=== PATIENT | male | born 1960 | race Caucasian/White ===

== ENCOUNTER → 2020-09-15 09:51 | Outpatient (BNVA) | payer BC, SELFPAY | PROVIDERS: PCP Internal Medicine; Referring Provider Internal Medicine; Visit Provider Nurse Practitioner Gerontology | DX: E11.9 Type 2 diabetes mellitus without complications (principal) ==

== ENCOUNTER 2020-12-23 09:19 | Outpatient (REF) | payer BC, SELFPAY ==
[2020-12-23 11:48] LABS: Estimated Average Glucose 171 mg/dL; Hemoglobin A1c % 7.6 %
[2020-12-23 11:52] LABS: Alanine Aminotransferase 29 U/L (0-40); Albumin Level 4.5 g/dL (3.5-5.0); Alkaline Phosphatase 59 U/L (39-117); Anion Gap 20 (12-20); Aspartate Amino Transferase 26 U/L (5-37); Bilirubin Total 2.1 mg/dL (0.0-1.0); Blood Urea Nitrogen 14 mg/dL (9-16); Calcium 9.6 mg/dL (8.4-10.2); Carbon Dioxide 22 mmol/L (22-29); Chloride 105 mmol/L (96-108); Cholesterol 142 mg/dL; Estimated Glomerular Filt Rate > 60; Glucose Fasting 125 mg/dL (60-99); HDL Cholesterol 52 mg/dL; LDL Cholesterol Calculated 66 mg/dl; Sodium 143 mmol/L (135-145); Total Protein 7.1 g/dL (6.5-8.0); Triglycerides 122 mg/dL
[2020-12-23 12:30] LABS: Creatinine Urine 76.39 mg/dL
[2020-12-24 04:57] LABS: LDL Cholesterol Direct 67 mg/dL (<100)
== END 2020-12-23 09:20 | disposition home or self-care (01) ==
LOC: HO.HMGCLDS 09:19
PROVIDERS: PCP Internal Medicine; Visit Provider Nurse Practitioner Gerontology
DX: E11.9 Type 2 diabetes mellitus without complications (principal)
CPT/HCPCS: 36415; 80053; 80061; 82043; 83036; 83721

== ENCOUNTER → 2021-01-04 08:19 | Outpatient (BNVA) | payer BC, SELFPAY | PROVIDERS: PCP Internal Medicine; Visit Provider Nurse Practitioner Gerontology | DX: E11.9 Type 2 diabetes mellitus without complications (principal); I10 Essential (primary) hypertension; E78.5 Hyperlipidemia, unspecified | CPT/HCPCS: 82947 ==

== ENCOUNTER → 2021-04-18 09:56 | Outpatient (BNVA) | payer BC, SELFPAY | PROVIDERS: PCP Internal Medicine; Visit Provider Nurse Practitioner Gerontology | DX: E11.65 Type 2 diabetes mellitus with hyperglycemia (principal); E11.21 Type 2 diabetes mellitus with diabetic nephropathy; I10 Essential (primary) hypertension; E78.5 Hyperlipidemia, unspecified; E66.01 Morbid (severe) obesity due to excess calories; I73.9 Peripheral vascular disease, unspecified; F17.290 Nicotine dependence, other tobacco product, uncomplicated; Z68.24 Body mass index [BMI] 24.0-24.9, adult; Z88.2 Allergy status to sulfonamides; Z79.4 Long term (current) use of insulin; Z79.899 Other long term (current) drug therapy | CPT/HCPCS: 82947 ==

== ENCOUNTER → 2021-08-24 11:34 | Outpatient (BNVA) | payer BC, SELFPAY | PROVIDERS: PCP Internal Medicine; Visit Provider Registered Nurse Diabetes Educator ==

== ENCOUNTER → 2021-10-25 10:50 | Outpatient (BNVA) | payer BC, SELFPAY | PROVIDERS: PCP Internal Medicine; Visit Provider Nurse Practitioner Gerontology | DX: E11.65 Type 2 diabetes mellitus with hyperglycemia (principal); E78.5 Hyperlipidemia, unspecified; I10 Essential (primary) hypertension | CPT/HCPCS: 82947; 83036 ==

== ENCOUNTER → 2021-11-28 07:58 | Outpatient (BNVA) | payer BC, SELFPAY | PROVIDERS: PCP Internal Medicine; Visit Provider Registered Nurse Diabetes Educator | DX: Z13.89 Encounter for screening for other disorder (principal) ==

== ENCOUNTER → 2022-08-22 07:53 | Outpatient (BNVA) | payer BC, SELFPAY | PROVIDERS: PCP Internal Medicine; Visit Provider Registered Nurse Diabetes Educator | DX: Z13.89 Encounter for screening for other disorder (principal) ==

== ENCOUNTER 2023-04-11 09:32 | Outpatient (AMB) | payer BC, SELFPAY ==
--- NOTE | 2023-04-11 09:36 | MHC.PC.OV ---
Vital Signs 04/11/23 09:37 Height 5 ft 11 in Weight 182 lb 2 oz BMI 25.4 BP 130/70 Blood Pressure Location Lt brachial Position Sitting Pulse 90 Pulse Source Pulse Oximeter Pulse Oximetry (%) 97 Oxygen Delivery Method Room Air Intake Visit Reasons: 4mth f/u Intake Note: Patient is here to follow up on DM, HTN, Hyperlipidemia. Certification Officer Required: No Leacher: Not Required per policy Accompanied by: Self / Same As Patient Allergies Sulfa (Sulfonamide Antibiotics) [SULFA (SULFONAMIDE ANTIBIOTICS)] Allergy (Unknown, Verified 04/11/23 09:36) UNKNOWN Medication List - Last Reconciled 04/11/23 by Sushil Quach MD acarbose 25 mg PO TID atorvastatin 80 mg PO BEDTIME blood sugar diagnostic (BehanceTouch Verio test strips) As directed 3x/day blood-glucose meter (OneTouch Verio Meter) As directed three times a day dulaglutide (Trulicity) 0.75 mg (0.5 mL) subcut QWEEK empagliflozin (Jardiance) 25 mg PO QAM ezetimibe 10 mg PO DAILY metformin 1,000 mg PO BID omeprazole 20 mg PO DAILY pioglitazone 30 mg PO DAILY tadalafil 5 mg PO DAILY Tobacco use date assessed: 04/11/23 Fall risk assessment: No Falls in past year Last assessed Fall Risk: 04/11/23 Dental Screening Dental Screen Date: 04/11/23 Did you have a dental visit in the last 12 months?: No Did you have a dental problem in the last 6 months where you did not have access to dental care?: No Was dental information given to patient?: No (dentures) HPI 4mth f/u HPI Details DM HTN and hyperlipidemia; due for labs PFSH Medical History (Updated 04/11/23 @ 10:18 by Sushil Quach MD) Barretts esophagus Diabetes mellitus type 2, controlled, without complications DM2 (diabetes mellitus, type 2) Erectile dysfunction Essential hypertension Gastric ulcer Hiatal hernia Hyperlipidemia LDL goal <100 Morbid obesity due to excess calories PAD (peripheral artery disease) Poorly controlled diabetes mellitus Surgical History History of cholecystectomy History of surgery History of tonsillectomy History of vasectomy Hx of colonoscopy Hx of endoscopy Hx of hemorrhoidectomy Hx of rhinoplasty Hx of rotator cuff surgery Family History Father Diabetes Mother Diabetes Cancer Brother Diabetes Sister Diabetes Social History Household Members: Family Housing: House Alcohol intake: current Alcohol intake frequency: a few times a week Patient Tobacco Use Status: Current someday Tobacco user Tobacco use type: Cigar Years Smoked: 3 cigars a week e-Cigarette/Vaping Use: Never Used Second Hand Smoke Exposure: No service: No Current occupational status: retired Cognitive needs: No Hearing needs: No Vision needs: Yes (glasses) Questionnaire PHQ-9 Over the last 2 weeks, how often have you been bothered by any of the following problems? Depression Screening Interpretation: Negative Source: Developed by Drs. Oscar Montes De Oca, Shantell Brown, Aidan Art and colleagues, with an educational eldon from [employer]. Thrive Questionnaire Date Thrive assessed: 10/23/22 Currently or been in a relationship where the following occur: no concerns reported HEATH-7 AMB Questionnaire HEATH-7 Date HEATH - 7 assessed: 10/23/22 Source: Developed by Drs. Oscar Montes De Oca, Shantell Brown, Aidan Art and colleagues, with an educational eldon from [employer]. Review of Systems Const Denies chills, Denies headache(s) and Denies weight loss ENT Denies headache(s) Card Denies chest pain, Denies syncope, Denies irregular heart rhythm and Denies dyspnea Resp Denies chest congestion, Denies cough and Denies dyspnea GI Denies abdominal pain, Denies change in stool character, Denies nausea and Denies vomiting Musc Denies deformity and Denies joint swelling Neuro Denies syncope and Denies headache(s) Physical exam (Primary Care) Vital Signs: Last Vital Signs Pulse 90 04/11/23 09:37 BP 130/70 04/11/23 09:37 Pulse Ox 97 04/11/23 09:37 Oxygen Delivery Method Room Air 04/11/23 09:37 BMI result Body Mass Index 25.4 Tobacco/Smoking Status: Tobacco use Status Tobacco use date assessed 04/11/23 04/11/23 09:47 Patient Tobacco Use Status Current someday Tobacco 04/11/23 09:47 Tobacco use type Cigar 04/11/23 09:47 e-Cigarette/Vaping Use Never Used 04/11/23 09:47 Depression Screening Interpretation: Negative Thrive Assessment: Date of Thrive Assessment Date Thrive assessed 10/23/22 04/11/23 09:47 Currently or been in a relationship where the following occur: no concerns reported Advance Care Planning discussion: On file, no changes Forms completed: Health Care Proxy Const General: cooperative, healthy appearing and no acute distress Orientation/consciousness: oriented to person, oriented to place and oriented to time HENMT Head: Yes normal to inspection, Yes normocephalic and Yes atraumatic Mouth: Normal oral and palatal mucosa present and tongue normal Throat: Yes posterior oropharynx normal and Yes uvula midline Eyes General: appearance normal, both eyes and all related structures Neck Neck: Yes normal visual inspection, Yes full ROM and Yes no lymphadenopathy Thyroid: Thyroid normal Carotids: normal carotid upstroke Chest Chest palpation & inspection: normal inspection of the chest Resp Effort & Inspection: normal respiratory effort and able to speak in complete sentences Auscultation: clear to auscultation bilaterally Cardio Jugular venous distension: no JVD Palpation: normal PMI Rate: regular rate Rhythm: regular rhythm Heart sounds: S1 normal heart sound present and S2 normal heart sound present GI Inspection: Yes normal to inspection Palpation (GI): Soft to palpation and No hepatosplenomegaly present Auscultation: normal bowel sounds General: Yes no CVA tenderness Back/Spine/Pelvis Back: no CVA tenderness Skin General skin exam: no rashes or lesions noted Neuro General: oriented to person, oriented to place and oriented to time Extrem General: Yes normal to inspection and Yes full ROM Results AMB Hemoglobin A1c AMB Hemoglobin A1c 8.1 % Last Edit by ABIOLA [place] on 04/11/23 09:54 Results Reviewed Results Reviewed: Laboratory Last Values Hgb A1c (Clinic) 8.1 % (4.0-6.0) H 04/11/23 09:35 Assessment and Plan Assessment & Plan (1) Hyperlipidemia LDL goal <100: Code(s): E78.5 - Hyperlipidemia, unspecified Plan: stable; same rx (2) Essential hypertension: Code(s): I10 - Essential (primary) hypertension Plan: stable; same rx (3) Type 2 diabetes mellitus with hyperlipidemia: Code(s): E11.69 - Type 2 diabetes mellitus with other specified complication; E78.5 - Hyperlipidemia, unspecified Plan: per endo Orders: Orders AMB Hemoglobin A1c Today E11.9 - Type 2 diabetes mellitus without complications Comprehensive [place]. Panel Fast Today N28.9 - Disorder of kidney and ureter, unspecified Hemoglobin A1c Today R73.9 - Hyperglycemia, unspecified Lipid Panel Today E78.5 - Hyperlipidemia, unspecified Microalbumin, Random (w Creat) Today E11.69 - Type 2 diabetes mellitus with other specified complication, E66.01 - Morbid (severe) obesity due to excess calories Complete Blood Count Auto Diff Today D64.9 - Anemia, unspecified Coding Level of Care Code Est Pt Level 4 (94961) Diagnoses Hyperlipidemia LDL goal <100 E78.5 Essential hypertension I10 Type 2 diabetes mellitus with hyperlipidemia E11.69; E78.5 Additional Codes Vital Signs *Quality* - Advance Care Planning discussion: On file, no changes ([id number])
[2023-04-11 09:37] VITALS: BP 130/70; PULSE 90; O2SAT 97; BMI 25.4
== END 2023-04-11 09:59 | disposition home or self-care (01) ==
PROVIDERS: PCP Internal Medicine; Visit Provider Internal Medicine
DX: E78.5 Hyperlipidemia, unspecified (principal); I10 Essential (primary) hypertension; E11.69 Type 2 diabetes mellitus with other specified complication; E11.9 Type 2 diabetes mellitus without complications; Z00.00 Encounter for general adult medical examination without abnormal findings
CPT/HCPCS: 1123F; 83036; 99214

== ENCOUNTER 2023-04-18 08:52 | Outpatient (AMB) | payer BC, SELFPAY ==
--- NOTE | 2023-04-18 09:38 | MHC.AMDMED ---
Intake Intake Visit Reasons: dm/CONFIRM Core Loader Required: No Accompanied by: Self / Same As Patient Allergies Sulfa (Sulfonamide Antibiotics) [SULFA (SULFONAMIDE ANTIBIOTICS)] Allergy (Unknown, Verified 04/11/23 09:36) UNKNOWN HPI Comprehensive Diabetes Asmnt Most Recent Diabetes Results: No Data to Display [facility] Medical History (Updated 04/11/23 @ 10:18 by Sushil Quach MD) Barretts esophagus Diabetes mellitus type 2, controlled, without complications DM2 (diabetes mellitus, type 2) Erectile dysfunction Essential hypertension Gastric ulcer Hiatal hernia Hyperlipidemia LDL goal <100 Morbid obesity due to excess calories PAD (peripheral artery disease) Poorly controlled diabetes mellitus Surgical History History of cholecystectomy History of surgery History of tonsillectomy History of vasectomy Hx of colonoscopy Hx of endoscopy Hx of hemorrhoidectomy Hx of rhinoplasty Hx of rotator cuff surgery Family History Father Diabetes Mother Diabetes Cancer Brother Diabetes Sister Diabetes Social History Household Members: Family Housing: House Alcohol intake: current Alcohol intake frequency: a few times a week Patient Tobacco Use Status: Current someday Tobacco user Tobacco use type: Cigar Years Smoked: 3 cigars a week e-Cigarette/Vaping Use: Never Used Second Hand Smoke Exposure: No service: No Current occupational status: retired Cognitive needs: No Hearing needs: No Vision needs: Yes (glasses) Assessment & Plan Assessment & Plan (1) Type 2 diabetes mellitus with hyperlipidemia: Code(s): E11.69 - Type 2 diabetes mellitus with other specified complication; E78.5 - Hyperlipidemia, unspecified Plan: Learning objectives: The patient was provided with verbal and written education on the following topics as outlined below. The patient met all learning objectives and was able to verbalize understanding and provide teach back of education topics discussed . The patient was provided with the opportunity to ask questions and all questions were answered. Patient Assessment Assess patient education level/literacy/barriers Patient questions/concerns, patient's PCP is managing diabetes medications at this time. Was seen on 04/11/2023 A1c was drawn. Still above target. Patient reports his PCP did not discuss diabetes medications at last visit. What is Diabetes? Pathophysiology How the body produces and uses insulin Identify type of DM Risk factors Signs of Diabetes Brief overview of Diabetes Management Monitoring blood sugar Following a meal plan Regular exercise Maintaining a healthy weight Taking medication as needed Members of the care team (PCP, RN, MA, RD, CDE, varnish remover) Blood glucose monitoring When/how often to test Target blood sugar ranges Patient does not test glucose levels Last A1c 8.1% on 04/11/23 Over the past 12 months patient's A1c has consistently improved, however still above target range Introduction to Nutrition Importance of healthy diet in managing DM Diet is personalized to individual preference Review patient?s regular diet/food preferences Who prepares meals/does food shopping/ Dining out?/ Barriers? How diet effects glucose Eating 3 balanced meals a day with small, healthy snacks between meals Review food groups Carbohydrates: What is a carbohydrate/Which food/food groups are considered carbohydrates Effect of carbohydrates on blood glucose Portion sizes Reading food labels Basic carb counting (if applicable per nursing assessment) Plate method Meal planning Recommendations: Follow plate method, consistent carbs and read nutritional labels. Smart Goal: Patient will move high carb snacks, prior to work. Educational Materials: The patient was provided with the following written educational materials: Planning Healthy Meals Handout Patient Response to instructions: Comprehension of Instructions: Fair Readiness to make changes: Contemplation How confident they feel about making changes: Poor Patient Instructions: Include regular daily activity. ADA recommends 30 minutes of exercise 5 days a week. Weight loss talk to PCP or Fiberglass Tube Molder before starting new plan. Test blood sugar as directed; Fasting and 2hpp largest meal. Watch trends in results. Utilize results and to assess how food, physical activity and medications affect blood sugar results. Bring glucometer or CGM to next visit. Be knowledgeable about diabetes medication, its action, side effects, efficacy, toxicity, prescribed dosage, appropriate timing and frequency of administration, effect of missed and delayed doses and instructions for storage, travel and safety. Follow-up with Diabetes Education nurse in 3 months Coding Level of Care Code Est Pt Level 1 (44276) Diagnoses Type 2 diabetes mellitus with hyperlipidemia E11.69; E78.5
== END 2023-04-18 09:42 | disposition home or self-care (01) ==
PROVIDERS: PCP Internal Medicine; Referring Provider Internal Medicine; Visit Provider Registered Nurse Diabetes Educator
DX: E11.69 Type 2 diabetes mellitus with other specified complication (principal); E78.5 Hyperlipidemia, unspecified

== ENCOUNTER → 2023-04-18 08:52 | Outpatient (BNVA) | payer BC, SELFPAY | PROVIDERS: Visit Provider Registered Nurse Diabetes Educator | DX: E11.69 Type 2 diabetes mellitus with other specified complication (principal); E78.5 Hyperlipidemia, unspecified | CPT/HCPCS: 99211 ==

== ENCOUNTER 2023-08-06 09:23 | Outpatient (AMB) | payer BC, SELFPAY ==
[2023-08-06 09:25] VITALS: BP 124/64; PULSE 89; BMI 26.2
--- NOTE | 2023-08-06 09:25 | A.OFFVIS_ITS ---
Intake Vital Signs 08/06/23 09:25 Height 5 ft 11 in Weight 187 lb 13.341 oz BMI 26.2 BP 124/64 Blood Pressure Location Lt brachial Position Sitting Pulse 89 Pulse Source Pulse Oximeter Intake Visit Reasons: DM-CONFIRMED Intake Note: Patient present today to follow up on Type 2 Diabetes Mellitus. Last Diabetic Eye exam: 07/2022 Last Podiatry Visit: 06/2023 Random Glucose: 230 mg/dl HgA1C: 8.2% Venetian Blind Washer Required: No Accompanied by: Self / Same As Patient Allergies Sulfa (Sulfonamide Antibiotics) [SULFA (SULFONAMIDE ANTIBIOTICS)] Allergy (Unknown, Verified 08/06/23 09:31) UNKNOWN HPI HPI Comments History of Present Illness Details Patient is a 62 yo male with DM type 2 diagnosed around 2008 who presents for continued management of diabetes. Patient was last seen on 10/25/2021 by Katiuska Cisneros NP. Past medical history: HLD, HTN Micro and macrovascular complications: - PVD. Diabetes medications: Jardiance 25mg, metformin 1000 BiD, Trulicity 0.75mg, previously on Actos 30mg ,precose 25 mg BID repaglinide caused side effects. Intolerant of higher doses of Trulicity. Unfortunately did not bring glucometer or logbook -very infrequently Symptoms reported: denies numbness, tingling, cramping in lower extremities Hypoglycemia: none recently Hyperglycemia: denies urinary frequency, denies nocturia, denies polydypsia Exercise: does 30 minutes on incumbant bike most days of the week. Optho appt: 1 yr ago - needs to make appt Strong family hx of Type 2 DM in parents and siblings [facility] Medical History (Updated 04/11/23 @ 10:18 by Sushil Quach MD) DM2 (diabetes mellitus, type 2) Poorly controlled diabetes mellitus Erectile dysfunction PAD (peripheral artery disease) Morbid obesity due to excess calories Gastric ulcer Hiatal hernia Barretts esophagus Essential hypertension Hyperlipidemia LDL goal <100 Diabetes mellitus type 2, controlled, without complications Surgical History History of cholecystectomy History of surgery History of tonsillectomy History of vasectomy Hx of colonoscopy Hx of endoscopy Hx of hemorrhoidectomy Hx of rhinoplasty Hx of rotator cuff surgery Family History Father Diabetes Mother Diabetes Cancer Brother Diabetes Sister Diabetes Social History Household Members: Family Housing: House Alcohol intake: current Alcohol intake frequency: a few times a week Patient Tobacco Use Status: Current someday Tobacco user Tobacco use type: Cigar Years Smoked: 3 cigars a week e-Cigarette/Vaping Use: Never Used Second Hand Smoke Exposure: No service: No Current occupational status: retired Cognitive needs: No Hearing needs: No Vision needs: Yes (glasses) Physical Exam Vital Signs: Last Vital Signs Pulse 89 08/06/23 09:25 BP 124/64 08/06/23 09:25 BMI result Body Mass Index 26.2 Absence of Cushingoid features. Absence of acromegalic features. Neck exam reveals nl size thyroid about 15 gms. No thyroid nodules palpable. No carotid bruits present. Lungs CTA. Heart S1 S2, Reg R/R. No M/R/ G. Skin exam reveals absence of vitiligo or acanthosis nigricans. Abdominal exam reveals Soft NT/ND with NA BS. No organomegaly present. Neck Other: . Extrem Other: Visual exam of foot performed. No ulcerations or open lesions. No onchomycosis, no callouses.Pulses 2 + distally Sensation intact to monofilament exam. Vibratory sensation sensed is intact with 128 Hz tuning fork Results Reviewed Results Reviewed: Laboratory Last Values Glucose (Clinic) 230 mg/dL (60-115) H 08/06/23 09:32 Assessment & Plan Assessment & Plan (1) DM2 (diabetes mellitus, type 2): Code(s): E11.9 - Type 2 diabetes mellitus without complications Qualifiers: Diabetes mellitus complication status: with hyperglycemia Diabetes mellitus jail insulin use: unspecified jail insulin use status Qualified Code(s): E11.65 - Type 2 diabetes mellitus with hyperglycemia Plan: This is a 62-year-old white male with history of type 2 diabetes being treated with Trulicity, Jardiance, metformin and Actos and acarbose with poor glycemic control and known macrovascular complications namely PVD. Plan is that the patient check his point cares pre and post meals. Would be a good candidate for a sensor like Aurea or Dexcom and will try to get him on Aurea 3. Will check basic metabolic panel, lipid profile microalbumin to creatinine ratio. Will switch Trulicity to Mounjaro 2.5 mg Qwkly. Went over side effects of Mounjaro including but not limited to nausea, vomiting and rare risk of pancreatitis. Went over correlation of poor glycemic control with development and progression complications with patient. Would consider discontinuing acarbose in future Mounjaro 2.5 mg samples given to patient lot number [id number] C expiration date 12/24/2024 Orders: Referrals Nutrition/Dietitian Referral E11.9 - Type 2 diabetes mellitus without complications Coding Level of Care Code Est Pt Level 4 (07660) Diagnoses Type 2 diabetes mellitus with hyperglycemia, unspecified whether playground supervisor insulin use E11.65 Diabetes mellitus complication status: with hyperglycemia Diabetes mellitus playground supervisor insulin use: unspecified playground supervisor insulin use status
[2023-08-06 09:37] LABS: Glucose, Whole Blood 230 mg/dL (60-115)
== END 2023-08-06 10:17 | disposition home or self-care (01) ==
PROVIDERS: PCP Internal Medicine; Visit Provider Internal Medicine Endocrinology, Diabetes & Metabolism
DX: E11.65 Type 2 diabetes mellitus with hyperglycemia (principal)
CPT/HCPCS: 99214

== ENCOUNTER → 2023-08-06 09:23 | Outpatient (BNVA) | payer BC, SELFPAY | PROVIDERS: PCP Internal Medicine; Visit Provider Internal Medicine Endocrinology, Diabetes & Metabolism | DX: E11.65 Type 2 diabetes mellitus with hyperglycemia (principal); Z79.85 Long-term (current) use of injectable non-insulin antidiabetic drugs | CPT/HCPCS: 82947 ==

== ENCOUNTER → 2023-08-09 07:42 | Outpatient (BNV) | payer BC, SELFPAY | PROVIDERS: PCP Internal Medicine; Visit Provider Internal Medicine Endocrinology, Diabetes & Metabolism | DX: E11.9 Type 2 diabetes mellitus without complications (principal) | CPT/HCPCS: 83036 ==

== ENCOUNTER 2023-08-27 09:36 | Outpatient (REF) | payer BC, SELFPAY | END 2023-08-27 09:37 | disposition home or self-care (01) | LOC: HO.HMGCLDS 09:36 | PROVIDERS: PCP Internal Medicine; Visit Provider Internal Medicine | DX: D64.9 Anemia, unspecified (principal); N28.9 Disorder of kidney and ureter, unspecified; E78.5 Hyperlipidemia, unspecified; E66.01 Morbid (severe) obesity due to excess calories; E11.65 Type 2 diabetes mellitus with hyperglycemia | CPT/HCPCS: 36415; 80053; 80061; 82043; 82570; 83036; 85025 ==

== ENCOUNTER 2023-08-30 09:33 | Outpatient (AMB) | payer BC, SELFPAY ==
[2023-08-30 09:35] VITALS: BP 124/76; RESP 86; O2SAT 98; BMI 25.4
--- NOTE | 2023-08-30 09:35 | MHC.PC.OV ---
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 Required: No Traffic Sergeant: Not Required per policy Accompanied by: Self / Same As Patient Allergies Sulfa (Sulfonamide Antibiotics) [SULFA (SULFONAMIDE ANTIBIOTICS)] Allergy (Unknown, Verified 08/30/23 09:35) UNKNOWN Medication List - Last Reconciled 08/30/23 by Sushil Quach MD acarbose 25 mg PO TID atorvastatin 80 mg PO BEDTIME blood sugar diagnostic (OneTouch Verio test strips) As directed 3x/day blood-glucose meter (CareWireTouch Verio Meter) As directed three times a day blood-glucose sensor ([employer]Style Aurea 3 Sensor device) As directed change management specialist 14 days dulaglutide (Trulicity) 0.75 mg (0.5 mL) subcut QWEEK empagliflozin (Jardiance) 25 mg PO QAM ezetimibe 10 mg PO DAILY metformin 1,000 mg PO BID omeprazole 20 mg PO DAILY pioglitazone 30 mg PO DAILY tadalafil 5 mg PO DAILY Tobacco use date assessed: 08/30/23 Fall risk assessment: No Falls in past year Last assessed Fall Risk: 08/30/23 Dental Screening Dental Screen Date: 08/30/23 Did you have a dental visit in the last 12 months?: No Did you have a dental problem in the last 6 months where you did not have access to dental care?: No Was dental information given to patient?: Patient has dentist HPI 3 month f/u HPI Details DM and hyperlip on rx; dietary indiscretion PFSH Medical History DM2 (diabetes mellitus, type 2) Poorly controlled diabetes mellitus Erectile dysfunction PAD (peripheral artery disease) Morbid obesity due to excess calories Gastric ulcer Hiatal hernia Barretts esophagus Essential hypertension Hyperlipidemia LDL goal <100 Diabetes mellitus type 2, controlled, without complications Surgical History History of surgery History of tonsillectomy History of vasectomy History of cholecystectomy Hx of rhinoplasty Hx of rotator cuff surgery Hx of hemorrhoidectomy Hx of colonoscopy Hx of endoscopy Family History Father Diabetes Mother Diabetes Cancer Brother Diabetes Sister Diabetes Social History Household Members: Family Housing: House Alcohol intake: current Alcohol intake frequency: a few times a week Patient Tobacco Use Status: Current someday Tobacco user Tobacco use type: Cigar Years Smoked: 3 cigars a week e-Cigarette/Vaping Use: Never Used Second Hand Smoke Exposure: No service: No Current occupational status: retired Cognitive needs: No Hearing needs: No Vision needs: Yes (glasses) Questionnaire PHQ-9 Over the last 2 weeks, how often have you been bothered by any of the following problems? 1. Little interest or pleasure in doing things: not at all 2. Feeling down, depressed, or hopeless: not at all 3. Trouble falling or staying asleep, or sleeping too much: not at all 4. Feeling tired or having little energy: not at all 5. Poor appetite or overeating: not at all 6. Feeling bad about yourself - or that you are a failure or have let yourself or your family down: not at all 7. Trouble concentrating on things, such as reading the newspaper or watching television: not at all 8. Moving or speaking so slowly that other people could have noticed. Or the opposite - being so fidgety or restless that you have been moving around a lot more than usual: not at all 9. Thoughts that you would be better off or of hurting yourself in some way: not at all Total score: 0 Depression Screening Interpretation: Negative Depression Screening Done: Yes 65837 - PHQ-9 Billing: Yes Source: Developed by Drs. Oscar Montes De Oca, Shantell Brown, Aidan Art and colleagues, with an educational eldon from [employer]. Thrive Questionnaire Date Thrive assessed: 08/30/23 I am a: Patient What is your living situation today?: I have a steady place to live Within the past 12 months, did the food you bought not last and you didn't have the money to get more?: Never true Within the past 12 months, did you worry whether your food would run out before you got money to buy more?: Never true Do you have trouble paying for medicines?: No Do you have trouble getting transportation to medical appointments?: No Do you have trouble paying your heating and electricity bill?: No Do you have trouble taking care of your child, family member or friend?: No Do you have trouble with day-to-day activities such as bathing, preparing meals, shopping, managing finances, etc.?: No Are you currently unemployed and looking for a job?: No Are you interested in more education?: No Please select the resources that you would like help with: None AUDIT C Alcohol Use Questionnaire (AUDIT-C) 1. How often do you have a drink containing alcohol?: Never Total Score: 0 Score Reviewed/Action Taken: Yes HEATH-7 AMB Questionnaire HEATH-7 Date HEATH - 7 assessed: 08/30/23 Feeling nervous, anxious, or on edge: 0 = Not at all Not being able to stop or control worryin = Not at all Worrying too much about different things: 0 = Not at all Trouble relaxin = Not at all Being so restless that it is hard to sit still: 0 = Not at all Becoming easily annoyed or irritable: 0 = Not at all Feeling afraid as if something awful might happen: 0 = Not at all Total HEATH-7 score (0-4 normal; 5-9 mild; 10-14 moderate; 15-21 severe): 0 Source: Developed by Drs. Oscar Montes De Oca, Shantell Brown, Aidan Art and colleagues, with an educational eldon from [employer]. HEATH-7 Assessment Billing HEATH-7 Assessment Tool: HEATH-7 Assessment 49069 Review of Systems Const Denies chills, Denies headache(s) and Denies weight loss ENT Denies headache(s) Card Denies chest pain, Denies syncope, Denies irregular heart rhythm and Denies dyspnea Resp Denies chest congestion, Denies cough and Denies dyspnea GI Denies abdominal pain, Denies change in stool character, Denies nausea and Denies vomiting Musc Denies deformity and Denies joint swelling Neuro Denies syncope and Denies headache(s) Physical exam (Primary Care) Vital Signs: Last Vital Signs Resp 86 H 08/30/23 09:35 BP 124/76 08/30/23 09:35 Pulse Ox 98 08/30/23 09:35 Oxygen Delivery Method Room Air 08/30/23 09:35 BMI result Body Mass Index 25.4 Tobacco/Smoking Status: Tobacco use Status Tobacco use date assessed 08/30/23 08/30/23 09:36 Patient Tobacco Use Status Current someday Tobacco 08/30/23 09:36 Tobacco use type Cigar 08/30/23 09:36 e-Cigarette/Vaping Use Never Used 08/30/23 09:36 PHQ-9: PHQ-9 Score PHQ-9: Total score 0 08/30/23 09:36 Depression Screening Interpretation: Negative Thrive Assessment: Date of Thrive Assessment Date Thrive assessed 08/30/23 08/30/23 09:36 Const General: cooperative, comfortable, no acute distress and alert Neck Neck: Yes no lymphadenopathy Thyroid: Thyroid normal Resp Effort & Inspection: normal respiratory effort Auscultation: clear to auscultation bilaterally Percussion: percussion normal Cardio Jugular venous distension: no JVD Palpation: normal PMI Rate: regular rate Rhythm: regular rhythm Heart sounds: S1 normal heart sound present and S2 normal heart sound present GI Inspection: Yes normal to inspection Palpation (GI): No hepatosplenomegaly present Skin General skin exam: no rashes or lesions noted Extrem General: Yes no clubbing, cyanosis or edema Assessment and Plan Assessment & Plan (1) Type 2 diabetes mellitus with hyperlipidemia: Code(s): E11.69 - Type 2 diabetes mellitus with other specified complication; E78.5 - Hyperlipidemia, unspecified Plan: improve diet; same rx (2) Hyperlipidemia LDL goal <100: Code(s): E78.5 - Hyperlipidemia, unspecified Plan: stable; same rx (3) Essential hypertension: Code(s): I10 - Essential (primary) hypertension Plan: stable; same rx Orders: Orders Glucose Fasting Today R73.9 - Hyperglycemia, unspecified Microalbumin, Random (w Creat) Today E11.69 - Type 2 diabetes mellitus with other specified complication, E66.01 - Morbid (severe) obesity due to excess calories Hemoglobin A1c Today R73.9 - Hyperglycemia, unspecified Coding Level of Care Code Est Pt Level 4 (23722) Diagnoses Type 2 diabetes mellitus with hyperlipidemia E11.69; E78.5 Hyperlipidemia LDL goal <100 E78.5 Essential hypertension I10 Additional Codes HEATH-7 Assessment Billing - HEATH-7 Assessment Tool: EHATH-7 Assessment 03851 ([id number])
== END 2023-08-30 09:49 | disposition home or self-care (01) ==
PROVIDERS: PCP Internal Medicine; Visit Provider Internal Medicine
DX: E11.69 Type 2 diabetes mellitus with other specified complication (principal); E78.5 Hyperlipidemia, unspecified; I10 Essential (primary) hypertension
CPT/HCPCS: 99214

== ENCOUNTER 2023-09-19 09:21 | Outpatient (AMB) | payer BC, SELFPAY ==
[2023-09-19 09:34] VITALS: BMI 24.6
--- NOTE | 2023-09-19 09:34 | A.OFFVIS_ITS ---
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 Meal pattern 11 am Donut , coffee with cream and suga r 3 pm : burger, tator tots or chicken/pot breana or pizza, ice tea 6-7 pm pizza, water 12:30 handful of chips, beer physical activity: active at work - soon to retire ETOH: 2 beers couple of time a week smoking: denies fluid: water, diet soda, flavored water fish: 0-1/wk fruits: 2-3 x/wk dairy: 3-4 x/d vegetables: 3 x/wk starches: 20 + TUK-Nraqhhm-Ek.Jeor Equation Height 5 ft 11 in Weight 176 lb Resting Metabolic Rate 1609.85 Calculated Activity Level Mild Activity Calories Needed to Maintain Weight 2213.54 Diagnosis Nutrition problem #1 food nutri know defi As related to (etiology) #1 diagnosis As evidenced by (sign/symptom) #1 knowledge deficit of diet Monitoring/Goals Nutrition problem monitoring level of knowledge/skill Nutrition goal/outcome list 3 CHO foods Outcome progress verbalized understanding Learning/Education Readiness to learn good Stages of change action Educational materials provided Yes (meal planning) Most Recent Diabetes Results: Microalb/Creat Ratio 20.6 ug/mg cr (<30) 08/27/23 Cholesterol 130 mg/dL (<200) 08/27/23 HDL Cholesterol 49 mg/dL (>40) 08/27/23 Triglycerides 140 mg/dL (<150) 08/27/23 Creatinine 0.79 mg/dL (0.5-1.4) 08/27/23 Blood Urea Nitrogen 15 mg/dL (9-16) 08/27/23 Sodium 143 mmol/L (135-145) 08/27/23 Potassium 4.5 mmol/L (3.3-5.1) 08/27/23 Chloride 104 mmol/L (96-108) 08/27/23 Carbon Dioxide 25 mmol/L (22-29) 08/27/23 Calcium 10.2 mg/dL (8.4-10.2) 08/27/23 AST 24 U/L (5-37) 08/27/23 ALT 25 U/L (0-40) 08/27/23 Total Protein 7.5 g/dL (6.5-8.0) 08/27/23 Albumin 4.5 g/dL (3.5-5.0) 08/27/23 [facility] Medical History DM2 (diabetes mellitus, type 2) Poorly controlled diabetes mellitus Erectile dysfunction PAD (peripheral artery disease) Morbid obesity due to excess calories Gastric ulcer Hiatal hernia Barretts esophagus Essential hypertension Hyperlipidemia LDL goal <100 Diabetes mellitus type 2, controlled, without complications Surgical History History of surgery History of tonsillectomy History of vasectomy History of cholecystectomy Hx of rhinoplasty Hx of rotator cuff surgery Hx of hemorrhoidectomy Hx of colonoscopy Hx of endoscopy Family History Father Diabetes Mother Diabetes Cancer Brother Diabetes Sister Diabetes Social History Household Members: Family Housing: House Alcohol intake: current Alcohol intake frequency: a few times a week Patient Tobacco Use Status: Current someday Tobacco user Tobacco use type: Cigar Years Smoked: 3 cigars a week e-Cigarette/Vaping Use: Never Used Second Hand Smoke Exposure: No service: No Current occupational status: retired Cognitive needs: No Hearing needs: No Vision needs: Yes (glasses) Assessment & Plan Assessment & Plan (1) DM2 (diabetes mellitus, type 2): Code(s): E11.9 - Type 2 diabetes mellitus without complications Qualifiers: Diabetes mellitus intermission coordinator insulin use: unspecified intermediate insulin use status Diabetes mellitus complication status: with hyperglycemia Qualified Code(s): E11.65 - Type 2 diabetes mellitus with hyperglycemia Plan: Wt: 80 Kg ( 08/2023 ) Est kcal needs as per MSJ: 2200 (40% carb, 30% protein/fat) Est fluid needs as per 30 ml/d: 2400 Est prot per day as per 1 g/kg bw: 80 Recommend fiber intake : 8-10 g per day and gradually increase to 25-28 g per day for women and 35-38 g for men or as tolerated Recommend sodium intake per day : less than 2000 mg Educated patient on: ( R = reviewed V = verbalizes understanding N/R = needs review N/A = not applicable * Food sources of carbohydrate, adequate serving sizes and its role in various health conditions: R , V * Differences between complex carbohydrates a simple carbohydrates, role of fiber in diet: R V * Lean protein sources of foods: R V * Differences between types of fats and role in diet (mono on saturated fat fatty acids, saturated fatty acids, trans fats): R * Food sources of sodium in salt and healthy modifications for heart health in kidney health: R * Vitamins and minerals: N/R * Healthy plate method concept: R V * Physical activity: Benefits a precaution: R V * Hypoglycemia protocol (rule of 15): R * Dietary prevention of Hyperglycemia: R Patient Instructions: Follow healthy plate method Work on choosing nutrient dense snacks - see meal/snack choices ideas see [address] meal plan as reference contact your doctor if having blood sugar less than 70 or higher than 180, 2 hours after meals for further review Coding Level of Care Code Nutr Indiv Intake (53268) Diagnoses Type 2 diabetes mellitus with hyperglycemia, unspecified whether intermission coordinator insulin use E11.65 Diabetes mellitus intermission coordinator insulin use: unspecified intermediate insulin use status Diabetes mellitus complication status: with hyperglycemia Time Spent (min) 30
[2023-09-19 10:08] VITALS: BMI 24.5
== END 2023-09-19 10:22 | disposition home or self-care (01) ==
PROVIDERS: PCP Internal Medicine; Visit Provider Dietitian, Registered
DX: E11.65 Type 2 diabetes mellitus with hyperglycemia (principal)

== ENCOUNTER → 2023-09-19 09:21 | Outpatient (BNVA) | payer BC, SELFPAY | PROVIDERS: PCP Internal Medicine; Visit Provider Dietitian, Registered | DX: E11.65 Type 2 diabetes mellitus with hyperglycemia (principal); Z71.3 Dietary counseling and surveillance | CPT/HCPCS: 97802 ==

== ENCOUNTER 2023-10-29 08:50 | Outpatient (AMB) | payer BC, SELFPAY ==
[2023-10-29 08:53] VITALS: BP 136/60; PULSE 77; O2SAT 98; BMI 25.5
--- NOTE | 2023-10-29 08:53 | MHC.PC.OV ---
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: Not Required per policy Accompanied by: Self / Same As Patient Allergies Sulfa (Sulfonamide Antibiotics) [SULFA (SULFONAMIDE ANTIBIOTICS)] Allergy (Unknown, Verified 10/29/23 08:54) UNKNOWN Medication List - Last Reconciled 10/29/23 by Sushil Quach MD acarbose 25 mg PO TID atorvastatin 80 mg PO BEDTIME blood sugar diagnostic (OneTouch Verio test strips) As directed 3x/day blood-glucose meter (OneTouch Verio Meter) As directed three times a day blood-glucose sensor ([employer] BrownStyle Aurea 3 Sensor device) As directed cell changer 14 days dulaglutide (Trulicity) 0.75 mg (0.5 mL) subcut QWEEK empagliflozin (Jardiance) 25 mg PO QAM ezetimibe 10 mg PO DAILY metformin 1,000 mg PO BID omeprazole 20 mg PO DAILY pioglitazone 30 mg PO DAILY tadalafil 5 mg PO DAILY Tobacco use date assessed: 08/30/23 Fall risk assessment: No Falls in past year Last assessed Fall Risk: 10/29/23 Dental Screening Dental Screen Date: 10/29/23 Did you have a dental visit in the last 12 months?: No Did you have a dental problem in the last 6 months where you did not have access to dental care?: No Was dental information given to patient?: Patient has dentist HPI Annual exam HPI Details DM; compliant with meds but dietary indisc PFSH Medical History DM2 (diabetes mellitus, type 2) Poorly controlled diabetes mellitus Erectile dysfunction PAD (peripheral artery disease) Morbid obesity due to excess calories Gastric ulcer Hiatal hernia Barretts esophagus Essential hypertension Hyperlipidemia LDL goal <100 Diabetes mellitus type 2, controlled, without complications Surgical History History of surgery History of tonsillectomy History of vasectomy History of cholecystectomy Hx of rhinoplasty Hx of rotator cuff surgery Hx of hemorrhoidectomy Hx of colonoscopy Hx of endoscopy Family History Father Diabetes Mother Diabetes Cancer Brother Diabetes Sister Diabetes Social History Household Members: Family Housing: House Alcohol intake: current Alcohol intake frequency: a few times a week Patient Tobacco Use Status: Current someday Tobacco user Tobacco use type: Cigar Years Smoked: 3 cigars a week e-Cigarette/Vaping Use: Never Used Second Hand Smoke Exposure: No service: No Current occupational status: retired Cognitive needs: No Hearing needs: No Vision needs: Yes (glasses) Questionnaire Thrive Questionnaire Date Thrive assessed: 08/30/23 HEATH-7 AMB Questionnaire HEATH-7 Date HEATH - 7 assessed: 08/30/23 Source: Developed by Drs. Oscar Montes De Oca, Shantell Brown, Aidan Art and colleagues, with an educational eldon from [employer]. Review of Systems Const Denies chills, Denies headache(s) and Denies weight loss ENT Denies headache(s) Card Denies chest pain, Denies syncope, Denies irregular heart rhythm and Denies dyspnea Resp Denies chest congestion, Denies cough and Denies dyspnea GI Denies abdominal pain, Denies change in stool character, Denies nausea and Denies vomiting Musc Denies deformity and Denies joint swelling Neuro Denies syncope and Denies headache(s) Physical exam (Primary Care) Vital Signs: Last Vital Signs Pulse 77 10/29/23 08:53 BP 136/60 10/29/23 08:53 Pulse Ox 98 10/29/23 08:53 Oxygen Delivery Method Room Air 10/29/23 08:53 BMI result Body Mass Index 25.5 Tobacco/Smoking Status: Tobacco use Status Tobacco use date assessed 08/30/23 10/29/23 08:54 Patient Tobacco Use Status Current someday Tobacco 10/29/23 08:54 Tobacco use type Cigar 10/29/23 08:54 e-Cigarette/Vaping Use Never Used 10/29/23 08:54 Thrive Assessment: Date of Thrive Assessment Date Thrive assessed 08/30/23 10/29/23 08:54 Const General: cooperative, comfortable, no acute distress and alert Neck Neck: Yes no lymphadenopathy Thyroid: Thyroid normal Resp Effort & Inspection: normal respiratory effort Auscultation: clear to auscultation bilaterally Percussion: percussion normal Cardio Jugular venous distension: no JVD Palpation: normal PMI Rate: regular rate Rhythm: regular rhythm Heart sounds: S1 normal heart sound present and S2 normal heart sound present GI Inspection: Yes normal to inspection Palpation (GI): No hepatosplenomegaly present Skin General skin exam: no rashes or lesions noted Extrem General: Yes no clubbing, cyanosis or edema Assessment and Plan Assessment & Plan (1) Type 2 diabetes mellitus with hyperlipidemia: Code(s): E11.69 - Type 2 diabetes mellitus with other specified complication; E78.5 - Hyperlipidemia, unspecified Plan: same rx; improve diet Orders: Orders Lipid Panel Today E78.5 - Hyperlipidemia, unspecified Glucose Fasting Today R73.9 - Hyperglycemia, unspecified Hemoglobin A1c Today R73.9 - Hyperglycemia, unspecified Coding Level of Care Code Est Pt Level 3 (62749) Diagnoses Type 2 diabetes mellitus with hyperlipidemia E11.69; E78.5
== END 2023-10-29 09:17 | disposition home or self-care (01) ==
PROVIDERS: Visit Provider Internal Medicine
DX: E11.69 Type 2 diabetes mellitus with other specified complication (principal); E78.5 Hyperlipidemia, unspecified
CPT/HCPCS: 99213